=== PATIENT | female | born 1975 | race Hispanic/Latino ===

== ENCOUNTER 2018-09-14 15:51 | Outpatient (CLI) | payer OTHER ==
--- NOTE | 2018-09-14 16:40 | RAD ---
PA AND LATERAL CHEST RADIOGRAPH: Date: 09-14-18 History: Mid chest pain, esophageal dysphagia. GERD. Chest wall pain. Comparison: None available. FINDINGS: The cardiac silhouette and pulmonary vasculature are within normal limits. The lungs are clear. Mckenzie us structures are intact. Surgical clips overlie the right upper quadrant. IMPRESSION: No acute cardiopulmonary process. POS: TONY
== END 2018-09-14 15:52 | disposition home or self-care (01) ==
LOC: BICRAD 15:51
PROVIDERS: ATTEND Internal Medicine Gastroenterology
DX: K21.9 Gastro-esophageal reflux disease without esophagitis (principal); R13.19 Other dysphagia; R07.89 Other chest pain
CPT/HCPCS: 71046

== ENCOUNTER 2018-09-18 09:14 | Outpatient (CLI) | payer OTHER ==
--- NOTE | 2018-09-18 12:30 | RAD ---
ESOPHAGRAM: DATE: 09/18/2018. HISTORY: Esophageal dysphagia and reflux. FINDINGS: A suspension of barium sulfate was given orally. Spot and overhead images were obtained. Fluoroscopy time is 1.5 minutes of fluoroscopy and DaP of 966 mGy*^m2. The esophagus is unremarkable. No evidence of masses or lesions seen. The barium passed into the st omach without difficulty. No focal areas of stricture, spasm, or significant stenosis seen. The bar ium tablet also passed the esophagus after temporarily staying in the upper thoracic esophagus; howev er, this passed into the more distal aspect. This area does not appear to have significant area of s tenosis and clearly expands and fills completely. IMPRESSION: Normal esophagram without evidence of strictures or stenosis seen. POS: FORTINO
== END 2018-09-18 09:15 | disposition home or self-care (01) ==
LOC: RAD 09:14
PROVIDERS: ATTEND Internal Medicine Gastroenterology
DX: K21.9 Gastro-esophageal reflux disease without esophagitis (principal); R13.19 Other dysphagia; R07.89 Other chest pain
CPT/HCPCS: 74220

== ENCOUNTER 2018-10-23 10:43 | Outpatient (CLI) | payer OTHER ==
--- NOTE | 2018-10-23 11:37 | CT ---
CT ABDOMEN AND PELVIS WITH CONTRAST: HISTORY: Esophageal dysphagia, R13.19. Gastroesophageal disease, K21.9. Diverticulosis, K57.3. COMPARISON: None. FINDINGS: Lung bases are clear. No pericardial effusion. Prior cholecystectomy. Mild diverticular disease of the sigmoid colon without active current inflammation. There are no dilated loops of large or small bowel. The appendix is visualized and is normal. Kidneys are unremarkable. No hydronephrosis. Adrenal glands are normal. Pancreas is normal as well as the spleen and liver. The portal vein is patent. No retroperitoneal adenopathy. There are dilated bilateral gonadal veins, larger on the left. IMPRESSION: 1. Dilated gonadal veins bilaterally, larger on the left, can be seen with pelvic congestion syndrom e. 2. No acute inflammatory process in the abdomen or pelvis. POS: [facility]
[2018-10-23] MEDS ORDERED: ISOVUE-370 76%-LOCM 1 ML ONE (15:05)
== END 2018-10-23 10:44 | disposition home or self-care (01) ==
LOC: BICCT 10:43
PROVIDERS: ATTEND Physician Assistant Medical
DX: K21.9 Gastro-esophageal reflux disease without esophagitis (principal); K57.30 Diverticulosis of large intestine without perforation or abscess without bleeding; R10.33 Periumbilical pain; R13.19 Other dysphagia; N94.89 Other specified conditions associated with female genital organs and menstrual cycle
CPT/HCPCS: 74177